=== PATIENT | female | born 1955 | race Caucasian/White ===

== ENCOUNTER 2022-06-19 13:31 | Outpatient (CLI) | payer MEDICARE, SELFPAY ==
--- NOTE | ~2022-06-19 | PE_ITS ---
EXAMINATION: PET skull to mid thigh DATE: 06/19/2022 15:22 INDICATION: Solitary pulmonary nodule. TECHNIQUE: Blood glucose level was 96 mg/dL. 10.598 mCi of 18-fluorodeoxyglucose (18-FDG) was adminis tered i.v. Low dose computed tomography (CT) images were acquired from the base of the brain to the p roximal thighs for attenuation correction and anatomic localization. Automated exposure control was e mployed. Dose-length product (DLP) was 1231 mGy-cm. Positron emission tomography (PET) images were ac quired in the same distribution. COMPARISON: CT abdomen and pelvis 10/30/2018 FINDINGS: Head/neck: There is increased activity in the oral cavity, pharynx, and glottis without abnormal CT c orrelate, likely physiologic. There are no pathologically enlarged lymph nodes. Chest: There is mild emphysema. The lungs demonstrate peripheral airspace and groundglass opacities, consistent with atelectasis and chronic lung disease. There are areas of activity in the lower lobes measuring up to maximum SUV of 1.8. No pleural effusion. There is a 15 x 13 mm right paratracheal lym ph node without increased activity, likely reactive. The heart size is normal. No pericardial effusio n. There are coronary artery calcifications. Abdomen/pelvis/proximal thighs: The liver is normal. There are changes of cholecystectomy. The spleen , pancreas, and right adrenal gland are normal. There is a 2.0 cm mass in left adrenal gland without increased activity measuring low attenuation, consistent with an adenoma. The kidneys are normal. The re are no dilated loops of bowel. The appendix is normal. There are no pathologically enlarged lymph nodes. There is no free intraperitoneal fluid. There is no osseous malignancy. IMPRESSION: 1. No specific evidence of malignancy. 2. Diffuse lung disease, likely a combination of mild emphysema and chronic interstitial lung disease . Reviewed, dictated and finalized at location A. IMPRESSION: 1. No specific evidence of malignancy. 2. Diffuse lung disease, likely a combination of mild emphysema and chronic int erstitial lung disease.
[2022-06-19 13:59] LABS: Glucose Point of Care 96 mg/dl (65-105)
== END 2022-06-19 13:32 | disposition home or self-care (01) ==
PROVIDERS: PCP Internal Medicine; Visit Provider Nurse Practitioner
DX: R91.1 Solitary pulmonary nodule (principal); Z85.828 Personal history of other malignant neoplasm of skin; R59.0 Localized enlarged lymph nodes; J84.10 Pulmonary fibrosis, unspecified; J43.9 Emphysema, unspecified; J84.9 Interstitial pulmonary disease, unspecified
CPT/HCPCS: 78815; A9552

== ENCOUNTER 2023-01-18 12:57 | Outpatient (CLI) | payer MEDICARE, SELFPAY ==
--- NOTE | ~2023-01-18 | US_ITS ---
EXAMINATION: US soft tissue LE LT DATE: 01/18/2023 14:18 INDICATION: Left-sided Zazueta's cyst. TECHNIQUE: Multiple grayscale and Doppler ultrasound images of the left lower limb were obtained. COMPARISON: CTA 10/30/2018 FINDINGS: Posterior to the left knee, there is a 7.3 x 4.1 x 1.7 cm cystic mass with septations. IMPRESSION: 1. 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 Reviewed, dictated and finalized at location A. IMPRESSION: 1. Cystic mass with septations posterior to the left knee, likely a large Zazueta 's cyst.
== END 2023-01-18 12:58 | disposition home or self-care (01) ==
PROVIDERS: PCP Internal Medicine; Visit Provider Internal Medicine
DX: M25.562 Pain in left knee (principal); M25.862 Other specified joint disorders, left knee
CPT/HCPCS: 76882

== ENCOUNTER 2024-03-26 10:10 | Outpatient (CLI) | payer MEDICARE, SELFPAY ==
--- NOTE | ~2024-03-26 | CT_ITS ---
CT Scan of the Chest without Contrast: Clinical Indication: Solitary pulmonary nodule Technique: Contiguous sections were acquired throughout the chest without intravenous contrast. Dose reduction technique was used on this scan by utilizing automated exposure control and iterative recon struction technique. The dose-length product (DLP) was 575.56 mGy-cm. Findings: Mildly prominent mediastinal lymph nodes are present, presumably reactive or within normal limits. Co ronary artery calcifications are present. No aortic aneurysm. There is no evidence of pleural or pericardial effusion. Moderate emphysema present. There is mild bibasilar chronic interstitial change. No significant pulmo nary nodule identified. Images through the upper abdomen reveal 1.9 cm low-density left adrenal nodule, likely adenoma.. Impression: Moderate emphysema mild bibasilar chronic interstitial change. No significant pulmonary nodule identi fied. Left adrenal adenoma. Reviewed, dictated and finalized at location . Impression: Moderate emphysema mild bibasilar chronic interstitial change. No significant p ulmonary nodule identified. Left adrenal adenoma.
[2024-03-26 11:00] VITALS: PULSE 86; O2SAT 92
[2024-03-26 11:02] VITALS: PULSE 113; O2SAT 87
[2024-03-26 11:03] VITALS: O2SAT 87
[2024-03-26 11:04] VITALS: PULSE 120; O2SAT 92
[2024-03-26 11:15] VITALS: PULSE 90; O2SAT 93
--- NOTE | 2024-03-26 11:26 | HOMEO2EVAL ---
Evaluation was performed at [facility] Home Oxygen Evaluation RC: Home Oxygen (O2) Evaluation Start: 03/26/24 11:22 Freq: Status: Active Protocol: RPE Activity Type Activity Date Activity User E-sign Co-sign Detail Recorded Client Recorded Date Recorded By Document 03/26/24 11:00 [email or web address] [email or web address] 03/26/24 11:26 MEGHANA Document 03/26/24 11:02 MEGHANA [email or web address] 03/26/24 11:26 MEGHANA Document 03/26/24 11:03 MEGHANA [email or web address] 03/26/24 11:26 MEGHANA Document 03/26/24 11:04 MEGHANA [email or web address] 03/26/24 11:26 MEGHANA Document 03/26/24 11:15 MEGHANA [email or web address] 03/26/24 11:26 MEGHANA 03/26/24 03/26/24 03/26/24 11:00 11:02 11:03 Home O2 Evaluation [Oxygen] -Test Phase Resting Exercise Exercise -Oxygen Delivery Room Air Room Air Nasal Cannula -Oxygen Flow Rate (L/min) 1 [Pulse Oximetry] -Pulse Oximetry (90-100 %) 92 87 L 87 L [Pulse Rate] -Pulse Rate (60-100 beats/min) 86 113 H [Comments] -Home Oxygen Evaluation Comments [Charges] -Evaluation Charges O2 Evaluation by Pulmonary 03/26/24 03/26/24 11:04 11:15 Home O2 Evaluation [Oxygen] -Test Phase Exercise Resting -Oxygen Delivery Nasal Cannula Room Air -Oxygen Flow Rate (L/min) 2 [Pulse Oximetry] -Pulse Oximetry (90-100 %) 92 93 [Pulse Rate] -Pulse Rate (60-100 beats/min) 120 H 90 [Comments] -Home Oxygen Evaluation Comments Pt walked 550 feet in 6 minutes. Pt requires 2 L O2 with activity/ exertion, room air at rest. [Charges] -Evaluation Charges
--- NOTE | 2024-03-26 11:26 | PCRCNOTE ---
Home O2 eval faxed to [facility] in [place] for requalification
--- NOTE | 2024-03-27 07:35 | WPDPFTINT ---
PFT Procedure Performed PFT Procedure Performed Plethysmography (Lung Vol) Diffusing Cap (DLCO) Flow Vol Loop Spirometry w/o Bronchodil PFT Interpretation This is a pulmonary function test with spirometry, plethysmography and diffusing capacity. The test was performed and results interpreted in accordance with the 2019 and 2005 ATS/ERS Task Force guidelines respectively using the Global Lung Function Initiative-2012 reference equations. Patient demonstrated good effort and cooperation. Reproducibility criteria were met. The quality of the spirometry maneuver was Grade A. Findings: Spirometry: There is decreased maximal expiratory airflow at all lung volumes with concave expiratory flow tracing. The contour the inspiratory flow tracing is normal. The FVC is 2.46 L, 79% predicted. The FEV1 is 1.09 L, 46% predicted. The FEV1: FVC ratio is 44%. Plethysmography: The total lung capacity is 5.96 L, 111% predicted. The functional residual capacity is 4.01 L, 130% predicted. The residual volume is 3.38 L, 149% predicted. The residual volume: Total lung capacity ratio is 57%. Diffusing capacity: The diffusing capacity unadjusted for hemoglobin and carboxyhemoglobin is 13.1, 61% predicted. The diffusing capacity adjusted for alveolar volume is 3.10, 74% predicted. Impression: There is a severe obstructive abnormality. The increase in residual volume to total lung volume ratio is consistent with hyperinflation from an obstructive abnormality. The diffusing capacity unadjusted for hemoglobin and carboxyhemoglobin is mildly decreased and normalizes when adjusted for alveolar volume. There are no prior studies for comparison
== END 2024-03-26 10:11 | disposition home or self-care (01) ==
PROVIDERS: PCP Internal Medicine
DX: D35.02 Benign neoplasm of left adrenal gland (principal); J43.9 Emphysema, unspecified
CPT/HCPCS: 71250; 94060; 94618; 94726; 94729

== ENCOUNTER 2024-06-18 07:22 | Outpatient (RCR) | payer MEDICARE, SELFPAY ==
[2024-04-09 12:26] VITALS: BMI 42.5
== END 2024-07-08 15:10 | disposition home or self-care (01) ==
LOC: ANHWOC 07:22
PROVIDERS: PCP Internal Medicine; Visit Provider Internal Medicine
DX: S81.801D Unspecified open wound, right lower leg, subsequent encounter (principal); I73.9 Peripheral vascular disease, unspecified
CPT/HCPCS: 99212; 99213; 99214; G0463

== ENCOUNTER 2024-09-01 09:17 | Outpatient (CLI) | payer MEDICARE, SELFPAY ==
--- NOTE | ~2024-09-01 | US_ITS ---
EXAMINATION: US arterial ankle brachial ind DATE: 09/01/2024 10:27 INDICATION: Peripheral vascular disease TECHNIQUE: Segmental pressures and plethysmographic and Doppler waveforms of the brachial and lower e xtremity arteries were obtained. COMPARISON: None. FINDINGS: Right and left brachial artery pressures of 124 mm Hg and 138 mm Hg, respectively, are concordant (no rmal difference <= 30 mmHg). The right ankle-brachial index (ROBBIN) is 0.95 (normal >= 0.9-1.0). The right great toe-brachial index (TBI) is 0.26 (normal >= 0.65). Arterial Doppler waveforms are biphasic with brisk systolic upstrokes at both right posterior tibial and dorsalis pedis arteries. The left ROBBIN is 0.96. The left TBI is 0.38. Arterial Doppler waveforms are biphasic with brisk systol ic upstrokes at both left posterior tibial and dorsalis pedis arteries. IMPRESSION: 1. Arterial occlusive disease to the bilateral lower limbs with mildly decreased bilateral ABIs and m oderately decreased left and moderate to severely decreased right TBIs. Reviewed, dictated and finalized at location A. IMPRESSION: 1. Arterial occlusive disease to the bilateral lower limbs with mildly decrease d bilateral ABIs and moderately decreased left and moderate to severely decreas ed right TBIs.
== END 2024-09-01 09:18 | disposition home or self-care (01) ==
PROVIDERS: PCP Internal Medicine; Visit Provider Internal Medicine
DX: I73.9 Peripheral vascular disease, unspecified (principal); S81.801A Unspecified open wound, right lower leg, initial encounter; X58.XXXA Exposure to other specified factors, initial encounter
CPT/HCPCS: 93922

== ENCOUNTER 2025-04-02 12:33 | Outpatient (CLI) | payer MEDICARE, SELFPAY ==
--- NOTE | ~2025-04-02 | CT_ITS ---
CT Scan of the Chest without Contrast: Clinical Indication: Lung cancer screening, nicotine dependence Technique: Contiguous sections were acquired throughout the chest without intravenous contrast. Dose reduction technique was used on this scan by utilizing automated exposure control and iterative recon struction technique. The dose-length product (DLP) was 449.04 mGy-cm. COMPARISON: 03/26/2024 Findings: There is no evidence of any significant mediastinal, hilar or axillary lymphadenopathy. The mediastin al soft tissues appear normal. There is no evidence of pleural or pericardial effusion. Moderate emphysema present. There is mild peripheral chronic interstitial change. No discrete pulmona ry nodule seen. Images through the upper abdomen reveal low-density left adrenal nodules, compatible with adenomas. Impression: Lung RADS 1: Negative. [address] advised. Emphysema and peripheral chronic interstitial change. Reviewed, dictated and finalized at [facility]. Impression: Lung RADS 1: Negative. [address] advised. Emphysema and peripheral chronic interstitial change.
--- OUTSIDE RECORDS SUMMARY | 2025-04-02 12:35 | XMS_ITS | CONTINUITY OF CARE DOCUMENT ---
Author Name babs brice Address Unknown Organization [facility] Address [address] [address] [place] [address] Phone [phone] Care Team Providers Care Immigration Attorney Name Role Phone Paola Kang MD Unavailable RODERICK VENEGAS DO Unavailable [phone] RODERICK VENEGAS DO Unavailable PROBLEMS Condition Status Date Provider Notes Other symptoms involving car diovascular system active Paola Kang MD COPD active Paola Kang MD HTN essential active Paola Kang MD Sinus tachycardia active Paola Hannon D CAD active Paola Kang MD Snoring active Paola Kang MD Sleep apnea active Paola Kang MD Shortness of breath active Catie Enriquez Chest pain active Abad Plurad Palpitations active Abad Plurad Bladder disorder active Paola Kang MD Cardiovascular Condition Screening active S lawson Kang MD ENCOUNTERS Date Type Provider Location Encounter Diag nosis - In-person encounter Office Visit Paola Kang MD [facility] - In-person encounter Office Visit Paola Kang MD [facility] Cardiovascular Condition Screening - In-person encounter Office Visit Paola Kang MD [facility] - In-person encounter Office Visit Paola Kang MD [facility] Bladder disorder - In-person encounter Office Visit Paola Kang MD [facility] - In-person encounter Office Visit Paola Kang MD [facility] - In-person encounter Office Visit Paola Kang MD [facility] - In-person encounter Office Visit Paola Kang MD [facility] - In-person encounter Office Visit Paola Kang MD [facility] - In-person encounter Office Visit Paola Kang MD [facility] - In-person encounter Office Visit Paola Kang MD [facility] - In-person encounter Office Visit Paola Kang MD [facility] - In-person encounter Office Visit Paola Kang MD [facility] Chest painPalpitations - In-person encounter Office Visit Paola Kang MD [facility] - In-person encounter Office Visit Paola Kang MD [facility] - In-person encounter Office Visit Paola Kang MD [facility] - In-person encounter Office Visit Paola Kang MD [facility] Shortness of breath - In-person encounter Office Visit Paola Kang MD [facility] - In-person encounter Office Visit Paola Kang MD [facility] Other symptoms involving cardiovascular systemCOPDHTN essentialSinus tachycardiaCADSnoringSleep apnea VITAL SIGNS Date Observation Value Provider Body Mass Index (Ratio) 42.44 kg/m2 Micheal Kang MD blood pressure, diastolic 64 mm[Hg] Huyen nkLogic blood pressure, systolic 161 mm[Hg] Laura kLogic blood pressure, cuff size regular Ja rret blood pressure, diastolic 64 mm[Hg] Ja rret blood pressure, systolic 161 mm[Hg] Jar ret pulse rate 93 /min Kayden y oxygen saturation, oximetry 94 % Kayden respiratory rate E&M 18 /min Kayden weight E&M 263 [lb_av] [facility] y height E&M 66 [in_i] [facility] y Body Mass Index (Ratio) 42.44 kg/m2 Micheal Kang MD blood pressure, diastolic 76 mm[Hg] An libra Barnes blood pressure, systolic 150 mm[Hg] Jaida Barnes oxygen saturation, oximetry 85 % Meenakshi Barnes pulse rate 78 /min Meenakshi Barnes weight E&M 263 [lb_av] Meenakshi Barnes blood pressure, cuff size large An libra Barnes height E&M 66 [in_i] Meenakshi Barnes Body Mass Index (Ratio) 41.48 kg/m2 Micheal Kang MD blood pressure, cuff size large Ke rri Doug blood pressure, diastolic 70 mm[Hg] Ke rri Doug blood pressure, systolic 156 mm[Hg] Theo Camacho oxygen saturation, oximetry 94 % Lyndsey Camacho respiratory rate E&M 14 /min Lyndsey zavalaelder pulse rate 95 /min Lyndsey Deecyrusalejandrina lder weight E&M 257 [lb_av] Lyndsey Hodges lder height E&M 66 [in_i] Lyndsey Hodges lder Body Mass Index (Ratio) 41.15 kg/m2 Micheal Kang MD blood pressure, cuff size regular Ch ristopher [place] blood pressure, diastolic 82 mm[Hg] Ch ristopher [place] blood pressure, systolic 139 mm[Hg] Chr istopher [place] pulse rate 83 /min Carlos reeder oxygen saturation, oximetry 99 % [facility] E&M 255 [lb_av] Carlos reeder height E&M 66 [in_i] Carlos reeder Body Mass Index (Ratio) 41.15 kg/m2 Micheal Kang MD blood pressure, diastolic -1 mm[Hg] Li nkLogic blood pressure, systolic 144 mm[Hg] Laura kLogic blood pressure, diastolic 77 mm[Hg] Sa ra Coon blood pressure, systolic 144 mm[Hg] Sandra a Coon oxygen saturation, oximetry 92 % Michela Coon respiratory rate E&M 18 /min Michela Si ms pulse rate 92 /min Michela Coon blood pressure, cuff size large Sa ra Coon weight E&M 255 [lb_av] Michela Coon height E&M 66 [in_i] Michela Coon Body Mass Index (Ratio) 42.44 kg/m2 Micheal Kang MD blood pressure, cuff size large Chas Camacho blood pressure, diastolic 80 mm[Hg] Ke rri Gruenenfelder blood pressure, systolic 142 mm[Hg] Ker ri Gruenenfelder oxygen saturation, oximetry 95 % Lyndsey Gruenenfelder respiratory rate E&M 16 /min Lyndsey G ruenenfelder pulse rate 91 /min Lyndsey Gruenenfe lder weight E&M 263 [lb_av] Lyndsey Gruenenfe lder height E&M 66 [in_i] Lyndsey Gruenenfe lder Body Mass Index (Ratio) 42.93 kg/m2 Micheal Kang MD blood pressure, cuff size large Ke rri Gruenenfelder blood pressure, diastolic 64 mm[Hg] Ke rri Gruenenfelder blood pressure, systolic 162 mm[Hg] Ker ri Gruenenfelder oxygen saturation, oximetry 95 % Lyndsey Gruenenfelder respiratory rate E&M 18 /min Lyndsey G alyssaenenfelder pulse rate 79 /min Lyndsey Gruenenfe lder weight E&M 266 [lb_av] Lyndsey Gruenenfe lder height E&M 66 [in_i] Lyndsey Juanuenenfe er Body Mass Index (Ratio) 42.93 kg/m2 Micheal Kang MD blood pressure, diastolic 76 mm[Hg] To nsha Calderon blood pressure, systolic 138 mm[Hg] Ton sha Calderon Inhaled O2 1 L/min Tonsha Calderon oxygen saturation, oximetry 94 % Tonsha Calderon respiratory rate E&M 16 /min Tonsha Calderon pulse rate 38 /min Tonsha Calderon weight E&M 266 [lb_av] Tonsha Calderon height E&M 66 [in_i] [facility] temperature site temporal Ankita Tank sley temperature E&M 97.8 [degF] Ankita Tanks yue Body Mass Index (Ratio) 44.70 kg/m2 Micheal Kang MD respiratory rate E&M 16 /min [facility] pulse rate 86 /min [facility] blood pressure, diastolic 90 mm[Hg] To [facility] blood pressure, systolic 169 mm[Hg] Ton [facility] oxygen saturation, oximetry 96 % [facility] weight E&M 277 [lb_av] [facility] height E&M 66 [in_i] [facility] Body Mass Index (Ratio) 43.57 kg/m2 Micheal Kang MD blood pressure, cuff size regular Cy monet Ramirez blood pressure, diastolic 76 mm[Hg] Cy monet Ramirez blood pressure, systolic 130 mm[Hg] Marivel alonso James oxygen saturation, oximetry 96 % Brittaney Ramirez respiratory rate E&M 18 /min Brittaney Ramirez pulse rate 92 /min Brittaney Martinbel l weight E&M 270 [lb_av] Brittaney Campbel l height E&M 66 [in_i] Brittaney Campbel l Body Mass Index (Ratio) 42.61 kg/m2 Abad Hardy blood pressure, diastolic 78 mm[Hg] Cherie Biggs blood pressure, systolic 136 mm[Hg] Lary Biggs oxygen saturation, oximetry 97 % Syl Biggs respiratory rate E&M 18 /min Ceasar Biggs pulse rate 85 /min Syl enriquez weight E&M 264.0 [lb_av] Syl rueda height E&M 66 [in_i] Syl Ro on Body Mass Index (Ratio) 43.74 kg/m2 Micheal Kang MD blood pressure, diastolic 70 mm[Hg] Cherie mclaughlin O'Julio C blood pressure, systolic 120 mm[Hg] Lary acharya O'Julio C blood pressure, resting Yes [facility] O'Julio C oxygen saturation, oximetry 98 % Astrid O'Julio C respiratory rate E&M 18 /min Astrid O'Julio C pulse rate 85 /min Astrid O'Julio C height E&M 66 [in_i] Astrid O'Julio C weight E&M 271 [lb_av] Astrid O'Julio C Body Mass Index (Ratio) 42.96 kg/m2 Abad Hardy blood pressure, diastolic 70 mm[Hg] Cherie Devontecatrachita Biggs blood pressure, systolic 138 mm[Hg] Lary Biggs oxygen saturation, oximetry 97 % Syl Biggs respiratory rate E&M 20 /min Ceasar Biggs pulse rate 81 /min Syl Ro jevonles weight E&M 266.2 [lb_av] Syl jacobsonon height E&M 66 [in_i] Syl Ro jevonles Body Mass Index (Ratio) 41.64 kg/m2 Quinten Willson blood pressure, cuff size regular Ke rri Doug blood pressure, diastolic 72 mm[Hg] Ke rri Doug blood pressure, systolic 138 mm[Hg] Theo Camacho oxygen saturation, oximetry 97 % Lyndsey Camacho respiratory rate E&M 20 /min Lyndsey murdock pulse rate 96 /min Lyndsey romano weight E&M 258 [lb_av] Lyndsey Jeremyayah er height E&M 66 [in_i] Lyndsey Deeandersonayah er Body Mass Index (Ratio) 41.19 kg/m2 Micheal Kang MD blood pressure, diastolic 84 mm[Hg] Cherie Biggs blood pressure, systolic 145 mm[Hg] Lary Biggs oxygen saturation, oximetry 93 % Syl Biggs respiratory rate E&M 18 /min Ceasar heidi SavageBiggs pulse rate 84 /min Syl Ro jevonles weight E&M 255.2 [lb_av] Syl Hussein marybeth height E&M 66 [in_i] Syl Ro jevonon Body Mass Index (Ratio) 40.35 kg/m2 Micheal Kang MD blood pressure, diastolic 81 mm[Hg] Cherie Biggs blood pressure, systolic 153 mm[Hg] Lary Biggs oxygen saturation, oximetry 98 % Syl Biggs respiratory rate E&M 18 /min Ceasar heidi Biggs pulse rate 91 /min Syl Ro jevonles weight E&M 250 [lb_av] Syl Ro jevonon height E&M 66 [in_i] Syl Ro jevonles Body Mass Index (Ratio) 40.15 kg/m2 Micheal Kang MD blood pressure, diastolic 90 mm[Hg] Cherie Biggs blood pressure, systolic 178 mm[Hg] Lary Biggs oxygen saturation, oximetry 98 % Syl Biggs respiratory rate E&M 18 /min Ceasar Biggs pulse rate 101 /min Syl Ro zoe weight E&M 248.8 [lb_av] Syl rueda height E&M 66 [in_i] Syl enriquez blood pressure, diastolic 70 mm[Hg] Cherie Biggs blood pressure, systolic 130 mm[Hg] Lary Biggs pulse rate 107 /min Syl enriquez oxygen saturation, oximetry 93 % Syl Biggs respiratory rate E&M 18 /min Ceasar Biggs Body Mass Index (Ratio) 39.86 kg/m2 Maia Biggs weight E&M 247 [lb_av] Syl enriquez blood pressure, diastolic 80 mm[Hg] Cherie Biggs blood pressure, systolic 160 mm[Hg] Lary Biggs pulse rate 104 /min Syl enriquez oxygen saturation, oximetry 96 % ySl Biggs respiratory rate E&M 20 /min Ceasar Biggs Body Mass Index (Ratio) 38.96 kg/m2 Maia Biggs weight E&M 241.4 [lb_av] Syl rueda height E&M 66 [in_i] Syl enriquez ALLERGIES Allergy Name Onset Date Reaction Criticality Status STATIN INTOLERANT High Criticality a ctive SPIRIVA Low Criticality active RESULTS Date Observation Value Provider Reference Range Interpretation Location 3 alanine aminotransferase (SGPT), serum 15 1/L [facility] 6-29 Normal 3 aspartate aminotransferase (SGOT), serum 12 1/L [facility] 10-35 Normal 3 alkaline phosphatase, serum 99 1/L [facility] 37-153 Normal 3 bilirubin, serum, total 0.5 mg/dL [facility] 0.2-1.2 Normal 3 albumin/globulin ratio, serum 1.4 (calc) [facility] 1.0-2.5 Normal 3 globulins, serum, total 2.8 G/DL (CALC) [facility] 1.9-3.7 Normal 3 albumin, serum 3.9 g/dL [facility] 3.6-5.1 Normal 3 protein, total, serum 6.7 g/dL [facility] 6.1-8.1 Normal 3 calcium, serum 9.3 mg/dL [facility] 8.6-10.4 Normal 3 carbon dioxide, venous blood 28 mmol/L [facility] 20-32 Normal 3 chloride, serum 101 mmol/L [facility] 98-110 Normal 3 potassium, serum 4.4 mmol/L [facility] 3.5-5.3 Normal 3 sodium, serum 137 mmol/L [facility] 135-146 Normal 3 urea nitrogen/creatinine ratio, serum 25 (calc) [facility] 6-22 High 3 creatinine, serum 1.03 mg/dL [facility] 0.50-1.05 Normal 3 urea nitrogen, blood 26 mg/dL [facility] 7-25 High 3 blood glucose, random 105 mg/dL [facility] 65-99 High 3 cholesterol, non-HDL, total 159 MG/DL (CALC) [facility] <130 High 3 cholesterol/HDL ratio, serum, percent 3.6 (calc) [facility] <5.0 Normal 3 LDL cholesterol, serum 139 MG/DL (CALC) [facility] High 3 triglyceride, serum, fasting 101 mg/dL [facility] <150 Normal 3 HDL cholesterol, serum 62 mg/dL [facility] > OR = 50 Normal 3 cholesterol, serum 221 mg/dL [facility] <200 High HISTORY OF MEDICATION USE Medication Status Instructions Dates Provider Indications [facility] metoprolol succinate 25 mg tablet extended release 24 hr active TAKE 1 TABLET BY MOUTH EVERY DAY Jacque Heath metoprolol succinate 25 mg tablet extended release 24 hr completed Take 1 tablet by mouth once a day - Jacque Heath Nexlizet 180-10 mg tablet completed one tab daily - samples given - Samara Desai RN Samples given Crestor 5 mg tablet completed TAKE 1 TABLET BY MOUTH ONCE DAILY - Ray Woodruff RN metoprolol succinate 25 mg tablet extended release 24 hr completed TAKE 1/2 TABLET BY MOUTH EVERY DAY 12.5mg - Samara Desai RN metoprolol succinate 25 mg tablet extended release 24 hr completed TAKE 1/2 TABLET BY MOUTH EVERY DAY 12.5mg - Paola Kang MD metoprolol succinate 50 mg tablet extended release 24 hr completed TAKE 1 TABLET BY MOUTH DAILY - Paola Kang MD QC VITAMIN C TABLET active once a day Lyndsey Camacho albuterol sulfate 2.5 mg/3 mL (0.083 %) solution for nebulization active as needed Lyndsey Camacho VITAMIN D TABLET active 1 tablet every other day Astrid Kirk metoprolol succinate 25 mg tablet extended release 24 hr completed 1 tablet once a day - Paola Kang MD Symbicort 80-4.5 mcg/actuation HFA aerosol inhaler active 2 puff twice a day Paola Kang MD CARDIZEM 120 MG ORAL TABLET completed q day - Syl Biggs fluticasone propionate 50 mcg/actuation spray,suspensio n active twice a day Syl Biggs sertraline 50 mg tablet active 1 tablet once a day Astrid Kirk Fish Oil 120-180 mg capsule active 1 tablet once a day ySl Biggs aspirin 81 mg tablet,delayed release (DR/EC) active 1 tablet by mouth once a day Paola Kang MD SIMVASTATIN 20 MG ORAL TABLET completed ONE TAB. DAILY - Brittaney Ramirez losartan-hydroc hlorothiazide 100-12.5 mg tablet active 1 tablet once a day Astrid Kirk ProAir HFA 90 mcg/actuation HFA aerosol inhaler active every four hours as needed Syl Biggs pantoprazole 40 mg tablet,delayed release (DR/EC) active 1 tablet once a day Astrid Kirk SOCIAL HISTORY Date Observation Value Provider smoking, year quit 2014 Paola Kang MD number of years as a smoker 30 a Paola Kang MD cigarette use yes Paola gallardo MD smoking status Former smoker Paola key MD social history reviewed E&M revi ewed - no changes required Paola Kang MD social history E&M S moking History: Mina merida is a former smoker. Paola Kang MD smoking, year quit 2014 Meenakshi Will iams number of years as a smoker 30 a Meenakshi Barnes cigarette use yes Meenakshi Barnes smoking status Former smoker Meenakshi mejias social history reviewed E&M revi ewed - no changes required Paola Kang MD smoking, year quit 2014 Paola Kang MD number of years as a smoker 30 a Paola Kang MD cigarette use yes Paola gallardo MD smoking status Former smoker Paola key MD social history E&M S moking History: Mina merida is a former smoker. Paola Kang MD social history reviewed E&M revi ewed - no changes required Paola Kang MD social history reviewed E&M revi ewed - no changes required Paola Kang MD social history E&M S moking History: Mina merida is a former smoker. Paola Kang MD social history reviewed E&M revi ewed - no changes required Paola Kang MD smoking, year quit 2014 Lyndsey wick number of years as a smoker 30 a Lyndsey Camacho cigarette use yes Lyndsey Cardenas elder smoking status Former smoker Lyndsey Luna nfelder smoking, year quit 2014 Lyndsey gomezfeldti number of years as a smoker 30 a Lyndsey Vicenteer cigarette use yes Lyndsey Cardenas elder smoking status Former smoker Lyndsey Luna nfelder smoking status Former smoker Paola key MD social history E&M S moking History: P attamy is a former smoker. Paola Kang MD social history reviewed E&M revi ewed - no changes required Paola Kang MD smoking, year quit 2014 Tonsha Mo ss number of years as a smoker 30 a Tonsha Calderon cigarette use yes Tonsha Calderon social history E&M S moking History: P attamy is a former smoker. Paola Kang MD social history reviewed E&M revi ewed - no changes required Paola Kang MD smoking, year quit 2014 Tonsha Mo ss number of years as a smoker 30 a Tonsha Calderon cigarette use yes Tonsha Calderon smoking status Former smoker Tonsha Calderon social history E&M S moking History: P attamy is a former smoker. Paola Kang MD social history reviewed E&M revi ewed - no changes required Paola Kang MD smoking, year quit 2014 Brittaney syed number of years as a smoker 30 a Brittaney Ramirez cigarette use yes Brittaney carrillo smoking status Former smoker Brittaney cash social history reviewed E&M revi ewed - no changes required Paola Kang MD social history E&M S moking History: Mina merida is a former smoker. Paola Kang MD smoking, year quit 2014 Syl Bigsg number of years as a smoker 30 a Syl Biggs cigarette use yes Syl rueda smoking status Former smoker Syl Webb social history reviewed E&M revi ewed - no changes required Paola Kang MD social history E&M S moking History: Mina merida is a former smoker. Paola Kang MD smoking status Former smoker Astrid larios social history reviewed E&M revi ewed - no changes required Abad Hardy social history E&M S moking History: Mina merida is a former smoker. Paola Kang MD smoking, year quit 2014 Syl Biggs number of years as a smoker 30 a Syl Biggs cigarette use yes Syl rueda smoking status Former smoker Syl Webb social history E&M S moking History: Mina merida is a former smoker. Paola Kang MD social history reviewed E&M revi ewed - no changes required Paola Kang MD smoking, year quit 2014 Lyndsey wick number of years as a smoker 30 a Lyndsey Camacho cigarette use yes Lyndsey au smoking status Former smoker Lyndsey Luna nfromier number of grandchildren Paola Kang MD social history E&M S moking History: Mina merida is a former smoker. Paola Kang MD social history reviewed E&M revi ewed - no changes required Paola Kang MD smoking, year quit 2014 Syl Biggs number of years as a smoker 30 a Syl Biggs cigarette use yes Syl jacobsonon smoking status Former smoker Syl Webb social history E&M S moking History: Mina merida is a former smoker. Paola Kang MD social history reviewed E&M revi ewed - no changes required Paola Kang MD smoking, year quit 2014 Syl Biggs number of years as a smoker 30 a Syl Biggs cigarette use yes Syl Savage enson smoking status Former smoker Syl Webb smoking, year quit 2014 Syl Biggs number of years as a smoker 30 a Syl Biggs cigarette use yes Syl Savage enson smoking status Former smoker Syl Webb social history reviewed E&M revi ewed - no changes required Paola Kang MD smoking, year quit 2014 Syl Biggs number of years as a smoker 30 a Syl Biggs cigarette use yes Syl Savage enson smoking status Former smoker Syl Webb social history E&M S moking History: Mina merida is a former smoker. Paola Kang MD social history reviewed E&M revi ewed - no changes required Paola Kang MD number of years as a smoker 30 a Syl Biggs smoking, year quit 2014 Syl Savageenson cigarette use yes Syl Savage enson smoking status Former smoker Syl Webb FUNCTIONAL STATUS Date Observation Value Provider HRA, CV Assess/Plan, Angina (inactive) Management Plan continue current therapy Paola Kang MD HRA, CV Assess/Plan, Angina (inactive) Management Plan continue current therapy Paola Kang MD HRA, CV Assess/Plan, Angina (inactive) Management Plan continue current therapy Paola Kang MD HRA, CV Assess/Plan, Angina (inactive) Management Plan continue current therapy Paola Kang MD HRA, CV Assess/Plan, Angina (inactive) Management Plan continue current therapy Paola Kang MD HRA, CV Assess/Plan, Angina (inactive) Management Plan continue current therapy Paola Kang MD HRA, CV Assess/Plan, Angina (inactive) Management Plan continue current therapy Paola Kang MD HRA, CV Assess/Plan, Angina (inactive) Management Plan continue current therapy Paola Kang MD HRA, CV Assess/Plan, Angina (inactive) Management Plan continue current therapy Paola Kang MD HRA, CV Assess/Plan, Angina (inactive) Management Plan continue current therapy Paola Kang MD HRA, CV Assess/Plan, Angina (inactive) Management Plan continue current therapy Paola Kang MD HRA, CV Assess/Plan, Angina (inactive) Management Plan continue current therapy Paola Kang MD HRA, CV Assess/Plan, Angina (inactive) Management Plan continue current therapy Natalia Willson HRA, CV Assess/Plan, Angina (inactive) Management Plan continue current therapy Paola Kang MD HRA, CV Assess/Plan, Angina (inactive) Management Plan continue current therapy Paola Kang MD HRA, CV Assess/Plan, Angina (inactive) Management Plan continue current therapy, antianginal therapy Paola Kang MD HRA, CV Assess/Plan, Angina (inactive) Management Plan continue current therapy Paola Kang MD FAMILY HISTORY Family Member Condition Mother Family History of Co ronary Artery Disease: INSURANCE PROVIDERS Payer name Policy type / Coverage type [employer] red libertarian ID [facility] [id number] [place] [employer] Medicare [id number] ADVANCE DIRECTIVES Name Date DISCUSSED - NO DECISION MADE TREATMENT PLAN Date Name Performer [id number],S,D iscussion of benefits for remote patient monitoring took place. Patient gives consent for remote monitoring of physiologic parameters including, but not limited to, weight, blood pressure, pulse oximetry, respiratory flow rate. Her updated medication list for this problem includes: Metoprolol Succinate 25 Mg Tablet Extended Release 24 Hr (Metoprolol succinate) ..... Take 1 tablet by mouth once a day Aspirin 81 Mg Tablet,delayed Release (dr/ec) (Aspirin) ..... 1 tablet by mouth once a day Losartan-hydrochlorothiazide 100-12.5 Mg Tablet (Losartan-hydrochlorothiazide) ..... 1 tablet once a day BP today: 150/76 P rior BP: 156/70 (02/22/2023) Labs Reviewed: C reat: 1.03 (03/06/2023) C hol: 221 (03/06/2023) HDL: 62 (03/06/2023) LDL: 139 MG/DL (CALC) (03/06/2023) T (03/06/2023) Paola Kang MD [id number],S, O n O2. E mphysema noted on prior CT. Pt. does not smoke anymore. Paola Kang MD [id number],C,C ONCLUSIONS: 1 . Technically difficult study, limited views secondary to poor acoustic windows. Interpretation is based on available limited v iews. Normal left ventricular systolic function. Normal left ventricular size. Normal left ventricular wall thickness. There is E t o A wave reversal consistent with impaired LV relaxation. E/E': 9.4 Left ventricular ejection fraction is measured at 60 %. 2 . Normal right ventricular size. Normal right ventricular systolic function. 3 . Normal appearing mitral valve leaflets. There is trace physiologic mitral valve regurgitation. 4 . Normal appearing tricuspid valve leaflets. There is mild tricuspid regurgitation. IVC is normal in size with normal r espiratory response. Estimated peak pulmonary artery systolic pressure is 29.0 mmHg. E lectronically signed by Paola Kang MD on 03/07/2023 at 10:39 AM Paola Kang MD [id number],C, M yocardial Perfusion I mage Quality is fair. There is no significant artifact. There is no scintigraphic evidence for scar tissue or myocardial ischemia. Left Ventricular Analysis L eft ventricular size is normal.The left ventricular ejection fraction is calculated at 55% TID =.87.Wall motion is normal. No segmental wall motion abnormalities are present. S onofre 1 . Normal myocardial perfusion imaging after vasodilator stress with Regadenoson. 2 . Normal left ventricular systolic function with a calculated ejection fraction of 55%. 3 . No obvious significant scintigraphic evidence of myocardial ischemia or scar. ...................................................... .............Westley Levi MD March 26, 2018 4:45 PM & #13;February 22, 2023 N o recent evaluation of LVF will arrange for echo Paola Kang MD [id number],C, O n O2. E mphysema noted on prior CT. Pt. does not smoke anymore. Paola Kang MD [id number],C,B P is overall well controlled. Checks at home H er updated medication list for this problem includes: Metoprolol Succinate 25 Mg Tablet Extended Release 24 Hr (Metoprolol succinate) ..... Take 1/2 tablet by mouth every day 12.5mg Metoprolol Succinate 25 Mg Tablet Extended Release 24 Hr (Metoprolol succinate) ..... Take 1/2 tablet by mouth every day 12.5mg Aspirin 81 Mg Tablet,delayed Release (dr/ec) (Aspirin) ..... 1 tablet by mouth once a day Losartan-hydrochlorothiazide 100-12.5 Mg Tablet (Losartan-hydrochlorothiazide) ..... 1 tablet once a day BP today: 156/70 P rior BP: 139/82 (07/24/2022) Paola Kang MD [id number],C, O n home O2 because of COVID mask. Normally only uses O2 with acitivty. Warned her regarding COVID. High likelihood of her getting infected due to poor pulmonary function. & #13;October 13, 2021 R emains on home O2. July 24, 2022 I termittently uses home O2 1L February 22, 2023 C heck echo to evalaute for PHTN still uses home O2 Paola Kang MD [id number],C, E cho C ONCLUSIONS: 1 . Technically difficult study, limited views secondary to poor acoustic windows. Interpretation is based on available limited v iews. Normal left ventricular systolic function. Normal left ventricular size. Normal left ventricular wall thickness. There is E t o A wave reversal consistent with impaired LV relaxation. E/E': 7.9. Left ventricular ejection fraction is measured at 60 %. 2 . Normal right ventricular size. Normal right ventricular systolic function. 3 . There is trace to mild mitral valve regurgitation. 4 . There is mild tricuspid regurgitation. Estimated peak pulmonary artery systolic pressure is 26.0 mmHg. M arch 2021 N o new CP July 24, 2022 N o new CP February 22, 2023 N o new CP overall doing well Paola Kang MD [id number],C, M yocardial Perfusion I mage Quality is fair. There is no significant artifact. There is no scintigraphic evidence for scar tissue or myocardial ischemia. Left Ventricular Analysis L eft ventricular size is normal.The left ventricular ejection fraction is calculated at 55% TID =.87.Wall motion is normal. No segmental wall motion abnormalities are present. S ummary 1 . Normal myocardial perfusion imaging after vasodilator stress with Regadenoson. 2 . Normal left ventricular systolic function with a calculated ejection fraction of 55%. 3 . No obvious significant scintigraphic evidence of myocardial ischemia or scar. ...................................................... .............Westley Levi MD March 26, 2018 4:45 PM & #13;February 22, 2023 N o recent evaluation of LVF will arrange for echo Paola Kang MD [id number],C, H er updated medication list for this problem includes: Metoprolol Succinate 50 Mg Tablet Extended Release 24 Hr (Metoprolol succinate) ..... Take 1 tablet by mouth daily Aspirin 81 Mg Tablet,delayed Release (dr/ec) (Aspirin) ..... 1 tablet by mouth once a day Losartan-hydrochlorothiazide 100-12.5 Mg Tablet (Losartan-hydrochlorothiazide) ..... 1 tablet once a day BP today: 139/82 P rior BP: 144/-1 (01/12/2022) July 24, 2022 C hecks BPs at home roughly in the same range, overall stable Paola Kang MD [id number],S,S tarted on oxybutynin 5mg daily, okay to use Paola Kang MD [id number],C, O n CPAP January 12, 2022 T he patient is using CPAP on a regular basis. The patient has been benefiting from therapy and should continue use. Paola Kang MD [id number],C, M yocardial Perfusion I mage Quality is fair. There is no significant artifact. There is no scintigraphic evidence for scar tissue or myocardial ischemia. Left Ventricular Analysis L eft ventricular size is normal.The left ventricular ejection fraction is calculated at 55% TID =.87.Wall motion is normal. No segmental wall motion abnormalities are present. S ummary 1 . Normal myocardial perfusion imaging after vasodilator stress with Regadenoson. 2 . Normal left ventricular systolic function with a calculated ejection fraction of 55%. 3 . No obvious significant scintigraphic evidence of myocardial ischemia or scar. ...................................................... .............Westley Levi MD March 26, 2018 4:45 PM Paola Kang MD [id number],C, O n home O2 because of COVID mask. Normally only uses O2 with acitivty. Warned her regarding COVID. High likelihood of her getting infected due to poor pulmonary function. & #13;October 13, 2021 R emains on home O2. July 24, 2022 I termittently uses home O2 1L Paola Kang MD [id number],C, T he patient is using CPAP on a regular basis. The patient has been benefiting from therapy and should continue use. Paola Kang MD [id number],C, K nowns to hvae PVCs. had LOC event. Await tele results from [facility]. A nderson study from 10/24 showed SR with occasional PVCs, no other significant blocks July 24, 2022 S he is down to 12.5mg daily of Lopressor does not tolerate higher dosage Paola Kang MD [id number],C, E cho C ONCLUSIONS: 1 . Technically difficult study, limited views secondary to poor acoustic windows. Interpretation is based on available limited v iews. Normal left ventricular systolic function. Normal left ventricular size. Normal left ventricular wall thickness. There is E t o A wave reversal consistent with impaired LV relaxation. E/E': 7.9. Left ventricular ejection fraction is measured at 60 %. 2 . Normal right ventricular size. Normal right ventricular systolic function. 3 . There is trace to mild mitral valve regurgitation. 4 . There is mild tricuspid regurgitation. Estimated peak pulmonary artery systolic pressure is 26.0 mmHg. M arch 2021 N o new CP July 24, 2022 N o new CP Paola Kang MD [id number],C, E cho C ONCLUSIONS: 1 . Technically difficult study, limited views secondary to poor acoustic windows. Interpretation is based on available limited v iews. Normal left ventricular systolic function. Normal left ventricular size. Normal left ventricular wall thickness. There is E t o A wave reversal consistent with impaired LV relaxation. E/E': 7.9. Left ventricular ejection fraction is measured at 60 %. 2 . Normal right ventricular size. Normal right ventricular systolic function. 3 . There is trace to mild mitral valve regurgitation. 4 . There is mild tricuspid regurgitation. Estimated peak pulmonary artery systolic pressure is 26.0 mmHg. M arch 2021 N o new CP Paola Kang MD [id number],C H er updated medication list for this problem includes: Aspirin 81 Mg Tablet,delayed Release (dr/ec) (Aspirin) ..... 1 tablet by mouth once a day Losartan-hydrochlorothiazide 100-12.5 Mg Tablet (Losartan-hydrochlorothiazide) ..... 1 tablet once a day Metoprolol Succinate 25 Mg Tablet Extended Release 24 Hr (Metoprolol succinate) ..... Take 1 tablet by mouth daily BP today: 144/77 P rior BP: 142/80 (10/13/2021) Paola Kang MD [id number],S, O n CPAP January 12, 2022 T he patient is using CPAP on a regular basis. The patient has been benefiting from therapy and should continue use. Paola Kang MD [id number],C, O n home O2 because of COVID mask. Normally only uses O2 with acitivty. Warned her regarding COVID. High likelihood of her getting infected due to poor pulmonary function. October 13, 2021 R wanda on home O2. Paola Kang MD [id number],Ursula K meins to hvae PVCs. had LOC event. Await tele results from [facility]. A nderson study from 10/24 showed SR with occasional PVCs, no other significant blocks Paola Kang MD [id number],CK nowns to hvae PVCs. had LOC event. Await tele results from [facility]. Paola Kang MD [id number],S, O n O2. E mphysema noted on prior CT. Pt. does not smoke anymore. Paola Kang MD [id number],C, M yocardial Perfusion I mage Quality is fair. There is no significant artifact. There is no scintigraphic evidence for scar tissue or myocardial ischemia. Left Ventricular Analysis L eft ventricular size is normal.The left ventricular ejection fraction is calculated at 55% TID =.87.Wall motion is normal. No segmental wall motion abnormalities are present. S ummary 1 . Normal myocardial perfusion imaging after vasodilator stress with Regadenoson. 2 . Normal left ventricular systolic function with a calculated ejection fraction of 55%. 3 . No obvious significant scintigraphic evidence of myocardial ischemia or scar. ...................................................... .............Westley Levi MD March 26, 2018 4:45 PM Paola Kang MD [id number],C, H er updated medication list for this problem includes: Aspirin 81 Mg Tablet,delayed Release (dr/ec) (Aspirin) ..... 1 tablet by mouth once a day Losartan-hydrochlorothiazide 100-12.5 Mg Tablet (Losartan-hydrochlorothiazide) ..... 1 tablet once a day Metoprolol Succinate 25 Mg Tablet Extended Release 24 Hr (Metoprolol succinate) ..... Take 1 tablet by mouth daily BP today: 142/80 P rior BP: 162/64 (04/14/2021) Paola Kang MD [id number],C, O n home O2 because of COVID mask. Normally only uses O2 with acitivty. Warned her regarding COVID. High likelihood of her getting infected due to poor pulmonary function. October 13, 2021 R emains on home O2. Paola Kang MD [id number],C, T he patient is using CPAP on a regular basis. The patient has been benefiting from therapy and should continue use. Paola Kang MD [id number],C,E cho C ONCLUSIONS: 1 . Technically difficult study, limited views secondary to poor acoustic windows. Interpretation is based on available limited v iews. Normal left ventricular systolic function. Normal left ventricular size. Normal left ventricular wall thickness. There is E t o A wave reversal consistent with impaired LV relaxation. E/E': 7.9. Left ventricular ejection fraction is measured at 60 %. 2 . Normal right ventricular size. Normal right ventricular systolic function. 3 . There is trace to mild mitral valve regurgitation. 4 . There is mild tricuspid regurgitation. Estimated peak pulmonary artery systolic pressure is 26.0 mmHg. Paola Kang MD [id number],B, Paola key MD [id number],S,T he patient is using CPAP on a regular basis. The patient has been benefiting from therapy and should continue use. Paola Kang MD [id number],W,r educe sodium intake had elevated bp today B P today: 162/64 P rior BP: 138/76 (04/15/2020) Her updated medication list for this problem includes: Metoprolol Succinate Er 25 Mg Oral Tablet Extended Release 24 Hour (Metoprolol succinate) ..... One tab. daily Aspirin Adult Low Dose 81 Mg Oral Tablet Delayed Release (Aspirin) ..... One tab by mouth daily Losartan Potassium-hctz 100-12.5 Mg Oral Tablet (Losartan potassium-hctz) ..... One tab once daily Paola Kang MD [id number],B, C ONCLUSIONS: 1 . Technically difficult study, limited views secondary to poor acoustic windows. Interpretation is based on available limited v iews. Normal left ventricular systolic function. Normal left ventricular size. Normal left ventricular wall thickness. There is E t o A wave reversal consistent with impaired LV relaxation. E/E': 7.9. Left ventricular ejection fraction is measured at 60 %. 2 . Normal right ventricular size. Normal right ventricular systolic function. 3 . There is trace to mild mitral valve regurgitation. 4 . There is mild tricuspid regurgitation. Estimated peak pulmonary artery systolic pressure is 26.0 mmHg. Paola Kang MD [id number],C, C ontrolled. H er updated medication list for this problem includes: Metoprolol Succinate Er 25 Mg Oral Tablet Extended Release 24 Hour (Metoprolol succinate) ..... One tab. daily Aspirin Adult Low Dose 81 Mg Oral Tablet Delayed Release (Aspirin) ..... One tab by mouth daily Paola Kang MD [id number],C, O n home O2 because of COVID mask. Normally only uses O2 with acitivty. Warned her regarding COVID. High likelihood of her getting infected due to poor pulmonary function. Paola Kang MD Cardiology: K sade to hvae PVCs. had LOC event. Await tele results from [facility]. A nderson study from 10/24 showed SR with occasional PVCs, no other significant blocks July 24, 2022 S he is down to 12.5mg daily of Lopressor does not tolerate higher dosage A pril 2023 R emains on Metoprolol 125 and palps are controlled. Paola Kang MD Cardiology: E cho C ONCLUSIONS: 1 . Technically difficult study, limited views secondary to poor acoustic windows. Interpretation is based on available limited v iews. Normal left ventricular systolic function. Normal left ventricular size. Normal left ventricular wall thickness. There is E t o A wave reversal consistent with impaired LV relaxation. E/E': 7.9. Left ventricular ejection fraction is measured at 60 %. 2 . Normal right ventricular size. Normal right ventricular systolic function. 3 . There is trace to mild mitral valve regurgitation. 4 . There is mild tricuspid regurgitation. Estimated peak pulmonary artery systolic pressure is 26.0 mmHg. M arch 2021 N o new CP July 24, 2022 N o new CP February 22, 2023 No new CP overall doing well February 07, 2024 P rior w/u reviewed. She said that she had URI recently. Paola Kang MD Cardiology: O n O2. E mphysema noted on prior CT. Pt. does not smoke anymore. February 07, 2024 N ot smoking and rarely uses O2 at home Paola Kang MD Cardiology: M yocardial Perfusion I mage Quality is fair. There is no significant artifact. There is no scintigraphic evidence for scar tissue or myocardial ischemia. Left Ventricular Analysis L eft ventricular size is normal.The left ventricular ejection fraction is calculated at 55% TID =.87.Wall motion is normal. No segmental wall motion abnormalities are present. Summary 1 . Normal myocardial perfusion imaging after vasodilator stress with Regadenoson. 2 . Normal left ventricular systolic function with a calculated ejection fraction of 55%. 3 . No obvious significant scintigraphic evidence of myocardial ischemia or scar. ...................................................... .............Westley Levi MD March 26, 2018 4:45 PM February 22, 2023 N o recent evaluation of LVF will arrange for echo Paola Kang MD Cardiology: H er updated medication list for this problem includes: Metoprolol Succinate 25 Mg Tablet Extended Release 24 Hr (Metoprolol succinate) ..... Take 1 tablet by mouth once a day Aspirin 81 Mg Tablet,delayed Release (dr/ec) (Aspirin) ..... 1 tablet by mouth once a day Losartan-hydrochlorothiazide 100-12.5 Mg Tablet (Losartan-hydrochlorothiazide) ..... 1 tablet once a day BP today: 161/64 P rior BP: 150/76 (08/09/2023) Labs Reviewed: C reat: 1.03 (03/06/2023) C hol: 221 (03/06/2023) HDL: 62 (03/06/2023) LDL: 139 MG/DL (CALC) (03/06/2023) T (03/06/2023) Paola Kang MD Cardiology: T he patient is using CPAP on a regular basis. The patient has been benefiting from therapy and should continue use. Paola Kang MD Cardiology:Discussio n of benefits for remote patient monitoring took place. Patient gives consent for remote monitoring of physiologic parameters including, but not limited to, weight, blood pressure, pulse oximetry, respiratory flow rate. Her updated medication list for this problem includes: Metoprolol Succinate 25 Mg Tablet Extended Release 24 Hr (Metoprolol succinate) ..... Take 1 tablet by mouth once a day Aspirin 81 Mg Tablet,delayed Release (dr/ec) (Aspirin) ..... 1 tablet by mouth once a day Losartan-hydrochlorothiazide 100-12.5 Mg Tablet (Losartan-hydrochlorothiazide) ..... 1 tablet once a day BP today: 150/76 P rior BP: 156/70 (02/22/2023) Labs Reviewed: C reat: 1.03 (03/06/2023) C hol: 221 (03/06/2023) HDL: 62 (03/06/2023) LDL: 139 MG/DL (CALC) (03/06/2023) T (03/06/2023) Paola Kang MD Cardiology: O n O2. E mphysema noted on prior CT. Pt. does not smoke anymore. Paola Kang MD Cardiology:CONCLUSIO NS: 1 . Technically difficult study, limited views secondary to poor acoustic windows. Interpretation is based on available limited v iews. Normal left ventricular systolic function. Normal left ventricular size. Normal left ventricular wall thickness. There is E t o A wave reversal consistent with impaired LV relaxation. E/E': 9.4 Left ventricular ejection fraction is measured at 60 %. 2 . Normal right ventricular size. Normal right ventricular systolic function. 3 . Normal appearing mitral valve leaflets. There is trace physiologic mitral valve regurgitation. 4 . Normal appearing tricuspid valve leaflets. There is mild tricuspid regurgitation. IVC is normal in size with normal r espiratory response. Estimated peak pulmonary artery systolic pressure is 29.0 mmHg. E lectronically signed by Paola Kang MD on 03/07/2023 at 10:39 AM Paola Kang MD Cardiology: M yocardial Perfusion I mage Quality is fair. There is no significant artifact. There is no scintigraphic evidence for scar tissue or myocardial ischemia. Left Ventricular Analysis L eft ventricular size is normal.The left ventricular ejection fraction is calculated at 55% TID =.87.Wall motion is normal. No segmental wall motion abnormalities are present. Summary 1 . Normal myocardial perfusion imaging after vasodilator stress with Regadenoson. 2 . Normal left ventricular systolic function with a calculated ejection fraction of 55%. 3 . No obvious significant scintigraphic evidence of myocardial ischemia or scar. ...................................................... .............Westley Lvei MD March 26, 2018 4:45 PM February 22, 2023 N o recent evaluation of LVF will arrange for echo Paola Kang MD Cardiology: O n O2. E mphysema noted on prior CT. Pt. does not smoke anymore. Paola Kang MD Cardiology:BP is ove rall well controlled. Checks at home H er updated medication list for this problem includes: Metoprolol Succinate 25 Mg Tablet Extended Release 24 Hr (Metoprolol succinate) ..... Take 1/2 tablet by mouth every day 12.5mg Metoprolol Succinate 25 Mg Tablet Extended Release 24 Hr (Metoprolol succinate) ..... Take 1/2 tablet by mouth every day 12.5mg Aspirin 81 Mg Tablet,delayed Release (dr/ec) (Aspirin) ..... 1 tablet by mouth once a day Losartan-hydrochlorothiazide 100-12.5 Mg Tablet (Losartan-hydrochlorothiazide) ..... 1 tablet once a day BP today: 156/70 P rior BP: 139/82 (07/24/2022) Paola Kang MD Cardiology: O n home O2 because of COVID mask. Normally only uses O2 with acitivty. Warned her regarding COVID. High likelihood of her getting infected due to poor pulmonary function. October 13, 2021 R wanda on home O2. July 24, 2022 I termittently uses home O2 1L February 22, 2023 [facility] echo to evalaute for PHTN still uses home O2 Paola Kang MD Cardiology: E cho C ONCLUSIONS: 1 . Technically difficult study, limited views secondary to poor acoustic windows. Interpretation is based on available limited v iews. Normal left ventricular systolic function. Normal left ventricular size. Normal left ventricular wall thickness. There is E t o A wave reversal consistent with impaired LV relaxation. E/E': 7.9. Left ventricular ejection fraction is measured at 60 %. 2 . Normal right ventricular size. Normal right ventricular systolic function. 3 . There is trace to mild mitral valve regurgitation. 4 . There is mild tricuspid regurgitation. Estimated peak pulmonary artery systolic pressure is 26.0 mmHg. M arch 2021 N o new CP July 24, 2022 N o new CP February 22, 2023 N o new CP overall doing well Paola Kang MD Cardiology: M yocardial Perfusion I mage Quality is fair. There is no significant artifact. There is no scintigraphic evidence for scar tissue or myocardial ischemia. Left Ventricular Analysis L eft ventricular size is normal.The left ventricular ejection fraction is calculated at 55% TID =.87.Wall motion is normal. No segmental wall motion abnormalities are present. Summary 1 . Normal myocardial perfusion imaging after vasodilator stress with Regadenoson. 2 . Normal left ventricular systolic function with a calculated ejection fraction of 55%. 3 . No obvious significant scintigraphic evidence of myocardial ischemia or scar. ...................................................... .............Westley Levi MD March 26, 2018 4:45 PM February 22, 2023 N o recent evaluation of LVF will arrange for echo Paola Kang MD Cardiology: H er updated medication list for this problem includes: Metoprolol Succinate 50 Mg Tablet Extended Release 24 Hr (Metoprolol succinate) ..... Take 1 tablet by mouth daily Aspirin 81 Mg Tablet,delayed Release (dr/ec) (Aspirin) ..... 1 tablet by mouth once a day Losartan-hydrochlorothiazide 100-12.5 Mg Tablet (Losartan-hydrochlorothiazide) ..... 1 tablet once a day BP today: 139/82 P rior BP: 144/-1 (01/12/2022) July 24, 2022 C hecks BPs at home roughly in the same range, overall stable Paola Kang MD Cardiology:Started o n oxybutynin 5mg daily, okay to use Paola Kang MD Cardiology: O n CPAP January 12, 2022 T he patient is using CPAP on a regular basis. The patient has been benefiting from therapy and should continue use. Paola Kang MD Cardiology: M yocardial Perfusion I mage Quality is fair. There is no significant artifact. There is no scintigraphic evidence for scar tissue or myocardial ischemia. Left Ventricular Analysis L eft ventricular size is normal.The left ventricular ejection fraction is calculated at 55% TID =.87.Wall motion is normal. No segmental wall motion abnormalities are present. Summary 1 . Normal myocardial perfusion imaging after vasodilator stress with Regadenoson. 2 . Normal left ventricular systolic function with a calculated ejection fraction of 55%. 3 . No obvious significant scintigraphic evidence of myocardial ischemia or scar. ...................................................... .............Westley Levi MD March 26, 2018 4:45 PM Paola Kang MD Cardiology: O n home O2 because of COVID mask. Normally only uses O2 with acitivty. Warned her regarding COVID. High likelihood of her getting infected due to poor pulmonary function. October 13, 2021 R emains on home O2. July 24, 2022 I termittently uses home O2 1L Paola Kang MD Cardiology: T he patient is using CPAP on a regular basis. The patient has been benefiting from therapy and should continue use. Paola Kang MD Cardiology: K sade to hvae PVCs. had LOC event. Await tele results from [facility]. A nderson study from 10/24 showed SR with occasional PVCs, no other significant blocks July 24, 2022 S he is down to 12.5mg daily of Lopressor does not tolerate higher dosage Paola Kang MD Cardiology: E cho C ONCLUSIONS: 1 . Technically difficult study, limited views secondary to poor acoustic windows. Interpretation is based on available limited v iews. Normal left ventricular systolic function. Normal left ventricular size. Normal left ventricular wall thickness. There is E t o A wave reversal consistent with impaired LV relaxation. E/E': 7.9. Left ventricular ejection fraction is measured at 60 %. 2 . Normal right ventricular size. Normal right ventricular systolic function. 3 . There is trace to mild mitral valve regurgitation. 4 . There is mild tricuspid regurgitation. Estimated peak pulmonary artery systolic pressure is 26.0 mmHg. arch 2021 N o new CP July 24, 2022 N o new JANELLE Kang MD Cardiology: E cho C ONCLUSIONS: 1 . Technically difficult study, limited views secondary to poor acoustic windows. Interpretation is based on available limited v iews. Normal left ventricular systolic function. Normal left ventricular size. Normal left ventricular wall thickness. There is E t o A wave reversal consistent with impaired LV relaxation. E/E': 7.9. Left ventricular ejection fraction is measured at 60 %. 2 . Normal right ventricular size. Normal right ventricular systolic function. 3 . There is trace to mild mitral valve regurgitation. 4 . There is mild tricuspid regurgitation. Estimated peak pulmonary artery systolic pressure is 26.0 mmHg. arch 2021 N o latesha Kang MD Cardiology: H er updated medication list for this problem includes: Aspirin 81 Mg Tablet,delayed Release (dr/ec) (Aspirin) ..... 1 tablet by mouth once a day Losartan-hydrochlorothiazide 100-12.5 Mg Tablet (Losartan-hydrochlorothiazide) ..... 1 tablet once a day Metoprolol Succinate 25 Mg Tablet Extended Release 24 Hr (Metoprolol succinate) ..... Take 1 tablet by mouth daily BP today: 144/77 P rior BP: 142/80 (10/13/2021) Paola Kang MD Cardiology: O n CPAP January 12, 2022 T he patient is using CPAP on a regular basis. The patient has been benefiting from therapy and should continue use. Paola Kang MD Cardiology: O n home O2 because of COVID mask. Normally only uses O2 with acitivty. Warned her regarding COVID. High likelihood of her getting infected due to poor pulmonary function. October 13, 2021 R emains on home O2. Paola Kang MD Cardiology: K nowns to hvae PVCs. had LOC event. Await tele results from [facility]. A nderson study from 10/24 showed SR with occasional PVCs, no other significant blocks Paola Kang MD Cardiology:Knowns to hvae PVCs. had LOC event. Await tele results from [place]. Paola Kang MD Cardiology: O n O2. E mphysema noted on prior CT. Pt. does not smoke anymore. Paola Kang MD Cardiology: M yocardial Perfusion I mage Quality is fair. There is no significant artifact. There is no scintigraphic evidence for scar tissue or myocardial ischemia. Left Ventricular Analysis L eft ventricular size is normal.The left ventricular ejection fraction is calculated at 55% TID =.87.Wall motion is normal. No segmental wall motion abnormalities are present. Summary 1 . Normal myocardial perfusion imaging after vasodilator stress with Regadenoson. 2 . Normal left ventricular systolic function with a calculated ejection fraction of 55%. 3 . No obvious significant scintigraphic evidence of myocardial ischemia or scar. ...................................................... .............Westley Levi MD March 26, 2018 4:45 PM Paola Kang MD Cardiology: H er updated medication list for this problem includes: Aspirin 81 Mg Tablet,delayed Release (dr/ec) (Aspirin) ..... 1 tablet by mouth once a day Losartan-hydrochlorothiazide 100-12.5 Mg Tablet (Losartan-hydrochlorothiazide) ..... 1 tablet once a day Metoprolol Succinate 25 Mg Tablet Extended Release 24 Hr (Metoprolol succinate) ..... Take 1 tablet by mouth daily BP today: 142/80 P rior BP: 162/64 (04/14/2021) Paola Kang MD Cardiology: O n home O2 because of COVID mask. Normally only uses O2 with acitivty. Warned her regarding COVID. High likelihood of her getting infected due to poor pulmonary function. October 13, 2021 R wanda on home O2. Paola Kang MD Cardiology: T he patient is using CPAP on a regular basis. The patient has been benefiting from therapy and should continue use. Paola Kang MD Cardiology:Echo 5-20 20 C ONCLUSIONS: 1 . Technically difficult study, limited views secondary to poor acoustic windows. Interpretation is based on available limited v iews. Normal left ventricular systolic function. Normal left ventricular size. Normal left ventricular wall thickness. There is E t o A wave reversal consistent with impaired LV relaxation. E/E': 7.9. Left ventricular ejection fraction is measured at 60 %. 2 . Normal right ventricular size. Normal right ventricular systolic function. 3 . There is trace to mild mitral valve regurgitation. 4 . There is mild tricuspid regurgitation. Estimated peak pulmonary artery systolic pressure is 26.0 mmHg. Paola Kang MD Cardiology Follow u p Paola Kang MD Cardiology Follow u p:The patient is using CPAP on a regular basis. The patient has been benefiting from therapy and should continue use. Paola Kang MD Cardiology Follow u p:reduce sodium intake had elevated bp today B P today: 162/64 P rior BP: 138/76 (04/15/2020) Her updated medication list for this problem includes: Metoprolol Succinate Er 25 Mg Oral Tablet Extended Release 24 Hour (Metoprolol succinate) ..... One tab. daily Aspirin Adult Low Dose 81 Mg Oral Tablet Delayed Release (Aspirin) ..... One tab by mouth daily Losartan Potassium-hctz 100-12.5 Mg Oral Tablet (Losartan potassium-hctz) ..... One tab once daily Paola Kang MD Cardiology Follow u p: C ONCLUSIONS: 1 . Technically difficult study, limited views secondary to poor acoustic windows. Interpretation is based on available limited v iews. Normal left ventricular systolic function. Normal left ventricular size. Normal left ventricular wall thickness. There is E t o A wave reversal consistent with impaired LV relaxation. E/E': 7.9. Left ventricular ejection fraction is measured at 60 %. 2 . Normal right ventricular size. Normal right ventricular systolic function. 3 . There is trace to mild mitral valve regurgitation. 4 . There is mild tricuspid regurgitation. Estimated peak pulmonary artery systolic pressure is 26.0 mmHg. Paola Kang MD Cardiology Follow u p: C ontrolled. H er updated medication list for this problem includes: Metoprolol Succinate Er 25 Mg Oral Tablet Extended Release 24 Hour (Metoprolol succinate) ..... One tab. daily Aspirin Adult Low Dose 81 Mg Oral Tablet Delayed Release (Aspirin) ..... One tab by mouth daily Paola Kang MD Cardiology Follow u p: O n home O2 because of COVID mask. Normally only uses O2 with acitivty. Warned her regarding COVID. High likelihood of her getting infected due to poor pulmonary function. Paola Kang MD Cardiology Paola Kang MD Cardiology: P t. reports noted improvement. CPAP compliance at 95% or better. T he patient is using CPAP on a regular basis. The patient has been benefiting from therapy and should continue use. Paola Kang MD Cardiology:On O2. E mphysema noted on prior CT. Pt. does not smoke anymore. Paola Kang MD Cardiology: M yocardial Perfusion I mage Quality is fair. There is no significant artifact. There is no scintigraphic evidence for scar tissue or myocardial ischemia. Left Ventricular Analysis L eft ventricular size is normal.The left ventricular ejection fraction is calculated at 55% TID =.87.Wall motion is normal. No segmental wall motion abnormalities are present. Summary 1 . Normal myocardial perfusion imaging after vasodilator stress with Regadenoson. 2 . Normal left ventricular systolic function with a calculated ejection fraction of 55%. 3 . No obvious significant scintigraphic evidence of myocardial ischemia or scar. ...................................................... .............Westley Levi MD March 26, 2018 4:45 PM Paola Kang MD Cardiology: H er updated medication list for this problem includes: Metoprolol Succinate Er 25 Mg Oral Tablet Extended Release 24 Hour (Metoprolol succinate) ..... One tab. daily Aspirin Adult Low Dose 81 Mg Oral Tablet Delayed Release (Aspirin) ..... One tab by mouth daily Losartan Potassium-hctz 100-12.5 Mg Oral Tablet (Losartan potassium-hctz) ..... One tab once daily BP today: 138/76 P rior BP: 169/90 (10/30/2019) Paola Kang MD Cardiology: C ONCLUSIONS: 1 . Technically difficult study, limited views secondary to poor acoustic windows. Interpretation is based on available limited v iews. Normal left ventricular systolic function. Normal left ventricular size. Normal left ventricular wall thickness. There is E t o A wave reversal consistent with impaired LV relaxation. E/E': 7.9. Left ventricular ejection fraction is measured at 60 %. 2 . Normal right ventricular size. Normal right ventricular systolic function. 3 . There is trace to mild mitral valve regurgitation. 4 . There is mild tricuspid regurgitation. Estimated peak pulmonary artery systolic pressure is 26.0 mmHg. Paola Kang MD Cardiology:On home O 2 because of COVID mask. Normally only uses O2 with acitivty. Warned her regarding COVID. High likelihood of her getting infected due to poor pulmonary function. Paola Kang MD Cardiology: E mphginaema noted on prior CT. Pt. does not smoke anymore. Paola Kang MD Cardiology: P t. reports noted improvement. CPAP compliance at 95% or better. T he patient is using CPAP on a regular basis. The patient has been benefiting from therapy and should continue use. Paola Kang MD Cardiology: M yocardial Perfusion I mage Quality is fair. There is no significant artifact. There is no scintigraphic evidence for scar tissue or myocardial ischemia. Left Ventricular Analysis L eft ventricular size is normal.The left ventricular ejection fraction is calculated at 55% TID =.87.Wall motion is normal. No segmental wall motion abnormalities are present. Summary 1 . Normal myocardial perfusion imaging after vasodilator stress with Regadenoson. 2 . Normal left ventricular systolic function with a calculated ejection fraction of 55%. 3 . No obvious significant scintigraphic evidence of myocardial ischemia or scar. ...................................................... .............Westley Levi MD March 26, 2018 4:45 PM Paola Kang MD Cardiology:switched pharmacies p ills changed shape size and color will need to track bp at home H er updated medication list for this problem includes: Metoprolol Succinate Er 25 Mg Oral Tablet Extended Release 24 Hour (Metoprolol succinate) ..... One tab. daily Aspirin Adult Low Dose 81 Mg Oral Tablet Delayed Release (Aspirin) ..... One tab by mouth daily Losartan Potassium-hctz 100-12.5 Mg Oral Tablet (Losartan potassium-hctz) ..... One tab once daily Paola Kang MD Cardiology follow up :Conclusions: 1 . Technically difficult study, secondary to poor acoustic windows. There is poor endocardial v isualization. Interpretation is based on available limited views. Normal left ventricular systolic f unction. Normal left ventricular size. Normal left ventricular wall thickness. There is E to A wave r eversal consistent with impaired LV relaxation. Left ventricular ejection fraction is estimated at 60 % . 2 . Normal right ventricular size. Normal right ventricular systolic function. 3 . No significant valvular abnormalities. Paola Kang MD Cardiology follow up : P t. reports noted improvement. CPAP compliance at 95% or better. T he patient is using CPAP on a regular basis. The patient has been benefiting from therapy and should continue use. Paola Kang MD Cardiology follow up :Myocardial Perfusion I mage Quality is fair. There is no significant artifact. There is no scintigraphic evidence for scar tissue or myocardial ischemia. Left Ventricular Analysis L eft ventricular size is normal.The left ventricular ejection fraction is calculated at 55% TID =.87.Wall motion is normal. No segmental wall motion abnormalities are present. & #13;Summary 1 . Normal myocardial perfusion imaging after vasodilator stress with Regadenoson. 2 . Normal left ventricular systolic function with a calculated ejection fraction of 55%. 3 . No obvious significant scintigraphic evidence of myocardial ischemia or scar. ...................................................... .............Westley Levi MD March 26, 2018 4:45 PM Paola Kang MD Cardiology follow up :Controlled. B P today: 130/76 P rior BP: 136/78 (10/17/2018) Her updated medication list for this problem includes: Metoprolol Succinate Er 25 Mg Oral Tablet Extended Release 24 Hour (Metoprolol succinate) ..... One tab. daily Aspirin Adult Low Dose 81 Mg Oral Tablet Delayed Release (Aspirin) ..... One tab by mouth daily Losartan Potassium-hctz 100-12.5 Mg Oral Tablet (Losartan potassium-hctz) ..... One tab once daily Paola Kang MD Cardiology follow up:On CPAP Jason Kang MD Cardiology follow up :Controlled. H er updated medication list for this problem includes: Metoprolol Succinate Er 25 Mg Oral Tablet Extended Release 24 Hour (Metoprolol succinate) ..... One tab. daily Aspirin Adult Low Dose 81 Mg Oral Tablet Delayed Release (Aspirin) ..... One tab by mouth daily Paola Kang MD Cardiology Abad Hardy Cardiology:Pt. repor ts noted improvement. CPAP compliance at 95% or better. T he patient is using CPAP on a regular basis. The patient has been benefiting from therapy and should continue use. Abad Hardy Cardiology:New PVCs seen on EKG today. Asymptomatic. Her updated medication list for this problem includes: Metoprolol Succinate Er 25 Mg Oral Tablet Extended Release 24 Hour (Metoprolol succinate) ..... One tab. daily Aspirin Adult Low Dose 81 Mg Oral Tablet Delayed Release (Aspirin) ..... One tab by mouth daily Abad Hardy Cardiology:Will dukes ge metoprolol tartrate to succinate, 25 mg once daily. Her updated medication list for this problem includes: Metoprolol Succinate Er 25 Mg Oral Tablet Extended Release 24 Hour (Metoprolol succinate) ..... One tab. daily Aspirin Adult Low Dose 81 Mg Oral Tablet Delayed Release (Aspirin) ..... One tab by mouth daily Losartan Potassium-hctz 100-12.5 Mg Oral Tablet (Losartan potassium-hctz) ..... One tab once daily BP today: 136/78 P rior BP: 120/70 (04/02/2018) Abad Hardy Cardiology:Emphysema noted on prior CT. Pt. does not smoke anymore. Paola Kang MD Cardiology: N eeds to evaluated for CAD since she is having progressive chest pains. However, pt. has not elected to have cath. Sister is here today as well and has been present for the evaluation and understands the issues. Pt. declines nitro pills also. Paola Kang MD Cardiology Paola Kang MD Cardiology: B P today: 120/70 P rior BP: 138/70 (03/05/2018) Paola Kang MD Cardiology:Stress te st 5/23/18: 1 . Normal myocardial perfusion imaging after vasodilator stress with Regadenoson. 2 . Normal left ventricular systolic function with a calculated ejection fraction of 55%. 3 . No obvious significant scintigraphic evidence of myocardial ischemia or scar. Echo 03/26/18 C onclusions: 1 . Technically difficult study, secondary to poor acoustic windows. There is poor endocardial v isualization. Interpretation is based on available limited views. Normal left ventricular systolic f unction. Normal left ventricular size. Normal left ventricular wall thickness. There is E to A wave r eversal consistent with impaired LV relaxation. Left ventricular ejection fraction is estimated at 60%. 2 . Normal right ventricular size. Normal right ventricular systolic function. 3 . No significant valvular abnormalities. Reviewed prior CT scan, demonstrating cardiac calcifications. Pt. does not wish to pursue cardiac cath at this time. Paola Kang MD Cardiology: T itration study on CPAP. Will first get a sleep study done at home to see if she is adequately treated Paola Kang MD Cardiology:Needs to evaluated for CAD since she is having progressive chest pains. Paola Kang MD Cardiology Paola Kang MD Cardiology:Well controlled. Medr x. Paola Kang MD Cardiology:Titration study on CPAP. Will first get a sleep study done at home to see if she is adequately treated. Paola Kang MD Cardiology:Could be ischemic or a-fib based on what she is describing. Needs to get a heart monitor and stress test. Paola Kang MD Cardiology:Could be ischemic or a-fib based on what she is describing. Needs to get a heart monitor and stress test. Paola Kang MD Cardiology Follow up :Getting O2 from Dr. Tubbs, pulmonology. Paola Kang MD Cardiology Follow up Paola kent MD Cardiology Follow up :The patient is actively using CPAP on a regular basis. She has been benefiting from therapy and should continue use. Paola Kang MD Cardiology Follow up :No chest p ain. Paola Kang MD Cardiology Paola Kang MD Cardiology: H er updated medication list for this problem includes: Metoprolol Tartrate 25 Mg Tabs (Metoprolol tartrate) ..... One tab. daily Aspirin Adult Low Dose 81 Mg Oral Tbec (Aspirin) ..... One tab by mouth daily Losartan Potassium-hctz 100-12.5 Mg Oral Tabs (Losartan potassium-hctz) ..... Once daily Paola Kang MD Cardiology:Pulmonary testing. 6 min walk. Was told before that she needs to have oxygen. She refused at that time. Will repeat the testing. Paola Kang MD Cardiology:On CPAP management Sa akanksha Kang MD Cardiology: W ill get 2D echo done to evaluate RV pressure. She has been on CPAP and has noted a dramatic improvement in her functional abilities over time. Paola Kang MD Cardiology Paola Kang MD Cardiology Paola Kang MD Cardiology:Continues to have SOB. Catie Bingham NP Cardiology:If sob pe rsists despite treatment of COPD, sleep apnea and adequate BP and HR control may need to consider rt/lt heart cath. H er updated medication list for this problem includes: Aspirin Adult Low Dose 81 Mg Oral Tbec (Aspirin) ..... One tab by mouth daily Losartan Potassium-hctz 100-12.5 Mg Oral Tabs (Losartan potassium-hctz) ..... Once daily Catie Bingham NP Cardiology:Will add metoprolol 2 5 mg bid. Catie Bingham NP Cardiology:BP elevat ed. Patient states it is usually more controlled. She will monitor BP and bring readings in on her next visit. H er updated medication list for this problem includes: Aspirin Adult Low Dose 81 Mg Oral Tbec (Aspirin) ..... One tab by mouth daily Losartan Potassium-hctz 100-12.5 Mg Oral Tabs (Losartan potassium-hctz) ..... Once daily Catie Bingham NP Cardiology Paola Kang MD Cardiology: T he following medications were removed from the medication list: Cardizem 120 Mg Tabs (Diltiazem hcl) ..... Q day Her updated medication list for this problem includes: Aspirin Adult Low Dose 81 Mg Oral Tbec (Aspirin) ..... One tab by mouth daily Losartan Potassium-hctz 100-12.5 Mg Oral Tabs (Losartan potassium-hctz) ..... Once daily Paola Kang MD Cardiology Paola Kang MD Cardiology Paola Kang MD Cardiology Paola Kang MD Cardiology Paola Kang MD Cardiology:undiagnos ed BRET, has pauses in breathing as she describes Paola Kang MD Cardiology:BP mildly elevated and patient is tachycardic, will add cardizem cd 120 H er updated medication list for this problem includes: Aspirin Adult Low Dose 81 Mg Oral Tbec (Aspirin) ..... One tab by mouth daily Losartan Potassium-hctz 100-12.5 Mg Oral Tabs (Losartan potassium-hctz) ..... Once daily Paola Kang MD Cardiology:History of emphysema Paola Kang MD Cardiology:Coronary calcifications on CT in chest, negative stress in hospital Paola Kang MD Date Name RPM (remote patient monitoring) HEPATIC FUNCTION QUINONEZ EL LIPID PANEL LIPID PANEL COMPREHENSIVE METABO LIC PANEL, W/EGFR Complete Echo Carotid Duplex Bilat eral Complete Echo Aorta Duplex Ultraso und (AAA) Carotid Duplex Bilat eral Mobile Cardiac Tele Sleep Study Home STR - Adenosine Complete Echo DLCO - 75565 FRC - 77852 FVC - 68971 6 minute walk test Complete Echo Sleep Study Home Sleep Study Home HISTORY OF PROCEDURES Procedure Date Procedure Name Provider Procedure Notes S tatus EKG Paola Kang MD completed EKG Paola Kang MD completed EKG Paola Kang MD completed EKG Paola Kang MD completed EKG Paola Kang MD completed EKG Paola Kang MD completed EKG Paola Kang MD completed EKG Paola Kang MD completed EKG Paola Kang MD completed EKG Paola Kang MD completed EKG Paola Kang MD completed Regadenoson, 4 units Paola kent MD completed Cardiolite, 2 units Paola key MD completed SPECT Images Westley Levi MD compl eted Stress EKG Westley Levi MD complet ed EKG Paola Kang MD completed EKG Paola Kang MD completed SNOMED-CT: [id number] Current Medications Documented Paola Kang MD completed Ambulatory Oximetry Paola key MD completed EKG Paola Kang MD completed SNOMED-CT: [id number] Current Medications Documented Paola Kang MD completed EKG Paola Kang MD completed SNOMED-CT: [id number] Current Medications Documented Paola Kang MD completed EKG Paola Kang MD completed SNOMED-CT: [id number] Current Medications Documented Paola Kang MD completed EKG Paola Kang MD completed SNOMED-CT: [id number] Current Medications Documented Paola Kang MD completed EKG Paola Kang MD completed SNOMED-CT: [id number] Current Medications Documented Paola Kang MD completed
--- OUTSIDE RECORDS SUMMARY | 2025-04-02 12:35 | XMS_ITS | Referral Summary ---
Author Organization [facility] [address] Address [address] [place] [address] Care Team Providers Care Tax Manager Cpa Name Role Phone Connor Slater DO Primary Care Provider [phone] Encounters Date Type Department Care Team Description 02/10/2025 2:00 PM CDT Office Visit [facility] Pulmonary at [address] [place] [phone] Mariza Curry NP Centrilobular emphysema (HCC) (Primary Dx); Gastroesophageal reflux disease without esophagitis; Rhinorrhea; Cigarette nicotine dependence in remission 02/05/2025 Telephone [facility] Pulmonary at [address] [place] [phone] Nevin Ramirez LPN albuterol solution from Last 3 Months Allergies Active Allergy Reactions Criticality Noted Date Comments Iodinated Contrast Media Nausea & Vomiting Low 04/2024 Medications docosahexaenoic acid-epa (Fish OiL) 120-180 mg capsule Take 500 mg by mouth daily 0 Active cholecalciferol 25 mcg (1,000 unit) tablet Take 5 tablets (5,000 Units total) by mouth every other day 8 Active ascorbic acid (ascorbic acid with minoo hips) 500 mg tablet,chewable Take 1 tablet/chew tab (500 mg total) by mouth daily Active pantoprazole DR (PROTONIX) 40 mg EC tablet Take 1 tablet (40 mg total) by mouth daily Active losartan (COZAAR) 100 mg tablet Take 1 tablet (100 mg total) by mouth daily Active hydroCHLOROthia zide (HYDRODIURIL) 25 mg tablet Take 0.5 tablets (12.5 mg total) by mouth daily Active metoprolol XL (TOPROL-XL) 25 mg extended release tablet Take 1 tablet (25 mg total) by mouth daily Active oxyBUTYnin (DITROPAN) 5 mg tablet Take 1 tablet (5 mg total) by mouth daily Active sertraline (ZOLOFT) 50 mg tablet Take 1 tablet (50 mg total) by mouth daily Active aspirin 81 mg capsule Chew 81 mg daily Act bryan albuterol 2.5 mg /3 mL (0.083 %) nebulizer solution Take 3 mL (2.5 mg total) by nebulization 4 (four) times a day 1 Active fluticasone propionate (FLONASE) 50 mcg/actuation nasal spray Administer 2 sprays into each nostril daily Active cetirizine (ZyrTEC) 10 mg chewable tablet Take 1 tablet (10 mg total) by mouth daily Active ezetimibe (ZETIA) 10 mg tablet Take 1 tablet (10 mg total) by mouth daily Active doxycycline (ADOXA) 100 mg tablet Take 1 tablet (100 mg total) by mouth 2 (two) times a day 4 Active phentermine 37.5 mg capsule TAKE 1 CAPSULE BY MOUTH DAILY 30 MINUTES BEFORE BREAKFAST OR 1 TO 2 HOURS AFTER BREAKFAST 4 Active budesonide-glyc opyr-formoterol (Breztri Aerosphere) 160-9-4.8 mcg/actuation inhaler Inhale 2 puffs 2 (two) times a day Rinse and spit after use - use with aerochamber 10.7 g 11 4 Active albuterol HFA (PROVENTIL HFA,VENTOLIN HFA,PROAIR HFA) 90 mcg/actuation inhalerIndicati ons:Acute Asthma Attack Inhale 2 puffs every 4 (four) hours as needed for wheezing or shortness of breath 18 g 11 5 Active albuterol 2.5 mg /3 mL (0.083 %) nebulizer solutionIndicat ions:Centrilobu lar emphysema (HCC) Take 3 mL (2.5 mg total) by nebulization 4 (four) times a day as needed for wheezing or shortness of breath 360 mL 3 5 02/06/20 26 Active azelastine (ASTELIN) 137 mcg (0.1 %) nasal sprayIndication s:Rhinorrhea Administer 1 spray into each nostril 2 (two) times a day Use in each nostril as directed 30 mL 11 5 Active Active Problems Problem Noted Date Diagnosed Date Gastroesophageal reflux disease without esophagi tis 02/11/2025 Assessment & Plan (02/11/2025 9:06 AM CDT): Continue pantoprazole once daily. Tums as needed Avoid trigger foods and eating 2-3 hours before bed Elevate head of bed while sleeping Avoid tight clothing We have discussed the relationship between uncontrolled GERD and cough, wheezing, and dyspnea Rhinorrhea 02/11/2025 Assessment & Plan (02/11/2025 9:09 AM CDT): I have suggested saline nasal rinses while in the shower She may continue fluticasone intranasally as needed up to twice a day Start azelastine twice daily Cvrh-[id number] antihistamine Centrilobular emphysema 09/09/2024 Assessment & Plan (02/11/2025 9:05 AM CDT): She had been on Symbicort 160 twice daily for many years, largely due to affordability I escalated her to Breztri twice daily and this has provided good clinical benefit. She will continue albuterol 2 puffs every 4 hours as needed only, she is aware of indications for use A1AT normal She has not had an exacerbation in greater than 12 months and she is not steroid dependent. She has not had significant decline in function related to pulmonary disease I do not have a recent eosinophil count. I have called her PCM to request a recent CBC with differential. We discussed Dupixent as an additive therapy but thus far I do not see an strong indication that she would have additional benefit The discussed signs and symptoms that would require earlier evaluation or change to her plan of care Assessment & Plan (09/09/2024 11:37 AM SKIP MINER BLASTING): She has been on Symbicort 160 twice daily for many years, largely due to affordability I will trial her on Breztri twice daily. I have given her 1 month of samples and instructed her on use and technique She was aware to rinse and spit after use She will continue albuterol as needed only, she is aware of indications for use She will call in a couple of weeks to update us on clinical benefit and I will order this through her pharmacy if needed at that time A1AT normal The discussed signs and symptoms that would require earlier evaluation or change to her plan of care Interstitial lung disease 09/09/2024 Assessment & Plan (09/09/2024 11:39 AM SKIP MINER BLASTING): This has been stable over several years with no progression noted She does not demonstrate restriction on pulmonary function testing and she has not had significant change in pulmonary symptoms We have discussed surveillance imaging and testing, normally we would plan for annual PFT and high-resolution CT She will consider Pulmonary nodule 09/09/2024 Assessment & Plan (09/09/2024 11:40 AM SKIP MINER BLASTING): 7 mm nodule noted to the right lower lobe She is uninterested in follow-up CT at this time Cigarette nicotine dependence in remission 09/09 Assessment & Plan (02/11/2025 9:09 AM CDT): She qualifies for annual lung cancer screening Her last CT of the chest was in March of 2024 with no new or worrisome pulmonary nodule She will be due for annual CT in March of 2025 Assessment & Plan (09/09/2024 11:38 AM SKIP MINER BLASTING): We have discussed annual lung cancer screening and she declines at this time. Social History Tobacco Use Types Packs/Day Years Used Date Smoking Tobacco: Former Cigarettes 2 49.8 S tarted: 1967 Tobacco Cessation:Counseling Given: Not Answered Comments Unknown Sex and Gender Information Value Date Recorded Sex Assigned at Not on file Legal Sex Female 9:37 PM SKIP MINER BLASTING Gender Identity Not on file Sexual Orientation Not on file Last Filed Vital Signs Vital Sign Reading Time Taken Comments Blood Pressure 146/74 02/10/2025 1:52 PM CDT Pulse 98 02/10/2025 1:52 PM CDT Temperature 36 C (96.8 F) 02/10/2025 1:52 PM CDT Respiratory Rate 18 02/10/2025 1:52 PM CDT Oxygen Saturation 95% 02/10/2025 1:52 PM CDT Inhaled Oxygen Concentration - - Weight 111.3 kg (245 lb 4.8 oz) 02/10/2025 1:52 PM CDT Height 167.6 cm (5' 6) 02/10/2025 1:52 PM CDT Body Mass Index 39.59 02/10/2025 1:52 PM CDT Plan of Treatment Not on file Insurance MEDICARE [facility] [place] [address] [facility] MEDICARE SUPPLEMENT Care Teams Tax Manager Cpa Relationship Specialty Start Date End Date Connor Slater DO PCP - General 03/15/16
--- OUTSIDE RECORDS SUMMARY | 2025-04-02 12:35 | XMS_ITS | Clinical Summary ---
Author Organization [facility] [address] Address [address] [place] [address] Care Team Providers Care Dietitian Helper Name Role Phone Connor Slater DO Primary Care Provider [phone] Allergies Active Allergy Reactions Criticality Noted Date [...] twice a day Start azelastine twice daily [id number]-[id number] antihistamine Centrilobular emphysema 09/09/2024 Assessment & Plan [...] care Assessment & Plan (09/09/2024 11:37 AM WATCH REPAIR TECHNICIAN): She has been on Symbicort 160 twice [...] 09/09/2024 Assessment & Plan (09/09/2024 11:39 AM WATCH REPAIR TECHNICIAN): This has been stable over several years with no progression noted She does not demonstrate restriction on pulmonary function testing and she has not had significant change in pulmonary symptoms We have discussed surveillance imaging and testing, normally we would plan for annual PFT and high-resolution CT She will consider Pulmonary nodule 09/09/2024 Assessment & Plan (09/09/2024 11:40 AM WATCH REPAIR TECHNICIAN): 7 mm nodule noted to the right [...] 2025 Assessment & Plan (09/09/2024 11:38 AM WATCH REPAIR TECHNICIAN): We have discussed annual lung cancer screening and she declines at this time. Encounters Date Type Department Care Team Description 02/10/2025 2:00 PM CDT Office Visit [facility] Pulmonary at [address] [place] [phone] Mariza Curry, MONO Centrilobular emphysema (HCC) (Primary Dx); Gastroesophageal reflux disease without esophagitis; Rhinorrhea; Cigarette nicotine dependence in remission 02/05/2025 Telephone [facility] Pulmonary at [address] [place] [phone] Nevin Ramirez LPN albuterol solution from Last 3 Months Surgical History Surgery Date Site/Laterality Comments HYSTERECTOMY W/ BILATERAL SALPINGOOPHORECTOMY SKIN CANCER EXCISION left leg and left arm Medical History Medical History Date Comments COPD (chronic obstructive pulmonary disease) (HC C) Emphysema lung (HCC) HTN (hypertension) Hypercholesterolemia GERD (gastroesophageal reflux disease) Pulmonary nodule 09/09/2024 Cigarette nicotine dependence in remission 09/09 Gastroesophageal reflux disease without esophagi tis 02/11/2025 Rhinorrhea 02/11/2025 Family History Medical History Relation Name Comments Leukemia Father open heart surgery Mother Hyperlipidemia Sister 1 Sherrie Ulcers Sister 1 Sherrie htn Sister 1 Sherrie Diabetes Sister 2 Anaid Hyperlipidemia Sister 2 Anaid Valvular heart disease Sister 2 Anaid Hyperlipidemia Sister 3 Sherrell htn Sister 3 Sherrell Relation Name Status Comments Father Mother Sister 1 Sherrie Sister 2 Anaid Alive Sister 3 Sherrell Alive Social History Tobacco Use Types Packs/Day Years Used Date Smoking Tobacco: Former Cigarettes 2 49.8 S tarted: 1967 Tobacco Cessation:Counseling Given: Not Answered Comments Unknown Sex and Gender Information Value Date Recorded Sex Assigned at Not on file Legal Sex Female 9:37 PM WATCH REPAIR TECHNICIAN Gender Identity Not on file Sexual Orientation Not on file Obstetrics History Last Filed Vital Signs Vital Sign Reading [...] 02/10/2025 1:52 PM CDT Plan of Treatment Health Maintenance Due Date Last Done Comments Breast Cancer Screening-Mammogram 1955 Colon Cancer Screening-Colonoscopy 1955 Depression Screening 1955 Fall Risk Assessment 1955 Hepatitis C Screening 1955 Osteoporosis Screening-Bone Density Scan 1955 DTaP/Tdap/Td Vaccine (1 - Tdap) 1965 Hepatitis B Screening 1972 Zoster Vaccine (1 of 2) 2004 Well Visit 65+ 2019 Pneumococcal vaccine 65+ (2 of 2 - PCV) 09/10/2020 09/10/2019 Covid-19 Vaccine (3 - 2023-2 5 season) 2024 01/25/2021, 12/28/2020 Influenza Vaccine (Season Ended) 2025 08/30/2021, 08/28/2019, 08/16/2018, Additional history exists Insurance MEDICARE [facility] MEDICARE [facility] MEDICARE SUPPLEMENT Care Teams Dietitian Helper Relationship Specialty Start Date End Date Connor Slater DO PCP - General 03/15/16
--- OUTSIDE RECORDS SUMMARY | 2025-04-02 12:35 | XMS_ITS | Continuity of Care Document ---
Author Organization [facility] Address [address] [place] [address] Phone Care Team Providers Care Adjunct Faculty Mathematics Department Name Role Phone Quinnsy, Edward Unavailable Unavailable Advance Directives Directive Yes / No Effective Date File Name No Information Encounters Encounter Description Practice Location Reason(s) For Visit Diagnoses Date Provider Providers Copied on Encounter [facility], [address], [place], [place], [id number], [place] tel:[phone] [facility] No Information [phone] Edward. [address], [place], [address], [place]. tel:[phone] Family History Family Member Type Diagnosis Age At Onset No Information Payers Payer name Insurance type Covered alliance party ID Authoriza tion(s) No Information Social History Type Description Quantity Date Captured Comments Sex Female Smoking Status No Information Chief Complaint And Reason For Visit No Information Reason For Referral Reason For Referral No Information History Of Present Illness Encounter Date Complaint History Of Prese nt Illness No Information Functional Status Date Functional Assessmen t No Information Instructions Date Instruction Additional Infor mation No Information Assessments Type Assessment Date No Information Patient Care Teams Name Effective Dates (start - stop) Status Members No Information
== END 2025-04-02 12:34 | disposition home or self-care (01) ==
LOC: ANHIMG 12:33
PROVIDERS: PCP Internal Medicine; Visit Provider Nurse Practitioner
DX: Z12.2 Encounter for screening for malignant neoplasm of respiratory organs (principal); J43.9 Emphysema, unspecified; J84.9 Interstitial pulmonary disease, unspecified; F17.210 Nicotine dependence, cigarettes, uncomplicated
CPT/HCPCS: 71271

== ENCOUNTER 2025-09-28 09:38 | Outpatient (CLI) | payer MEDICARE, SELFPAY ==
--- NOTE | ~2025-09-28 | DEXA_ITS ---
Bone Density Report Name: LISETTE SIMPSON Age: 70 Sex: Female Ethnicity: White Date of : 1955 Indication: postmenopausal; screening for osteoporosis; height loss; Referring Provider: LILLIE PEÑALOZA Study: Bone densitometry was performed. Exam Date: September 28, 2025 Accession number: [id number] Bone Density: Region BMD T-score Z-score Classification AP Spine(L1-L4) 1.076 0.3 2.5 Normal Femoral Neck (Left) 0.773 -0.7 1.2 Normal Total Hip (Left) 1.008 0.5 2.1 Normal Femoral Neck (Right) 0.754 -0.9 1.0 Normal Total Hip (Right) 1.015 0.6 2.2 Normal Total Hip Mean 1.012 0.6 2.2 Normal World Health Organization criteria for BMD impression classify patients as: Normal (T-score at or above -1.0), Osteopenia (T-score between -1.0 and -2.5), or Osteoporosis (T-score at or below -2.5). 10-year Fracture Risk: FRAX not reported because: All T-scores for Spine Total, Hip Total, Femoral Neck at or above -1.0 Clinical Information Provided by Patient: Has used the following medications: Vitamin D Patient maximum height was 66 Menopause Age: 50 No regular weight bearing exercise Does not regularly consume dairy products Onset of menses at age 13 Number of children 0 Impression: The patient has normal bone mass. Discussion: BONE DENSITY IS ABOVE THE MINIMUM DESIRABLE LEVEL AT ALL SKELETAL SITES TESTED. This patient?s bone mineral density is above the minimum desirable level (T-score -1.0 or better) at all sites measured. The patient should follow a healthful lifestyle (good nutrition with adequate calcium and vitamin D, and appropriate weight-bearing exercise). Follow-Up: Consider repeating this study in 5 years or sooner if there is some new clinical indication. Reported by: JESSICA on 09/28/2025 10:08:00 AM. Reviewed, dictated and finalized at location A.
== END 2025-09-28 09:39 | disposition home or self-care (01) ==
PROVIDERS: PCP Internal Medicine
DX: Z78.0 Asymptomatic menopausal state (principal)
CPT/HCPCS: 77080